=== PATIENT | female | born 1985 | race American Indian/Alaskan Native ===

== ENCOUNTER 2018-11-10 12:24 | Emergency (ER) | payer MEDICAID ==
[2018-11-10] MEDS ORDERED: Bacitracin Oint 1 GM U/D Packet TOP ONE (12:50)
--- NOTE | 2018-11-10 12:56 | EDM.PDOC ---
ED HPI GENERAL MEDICAL PROBLEM - General Chief Complaint: Lower Extremity Injury/Pain Stated Complaint: toenail Time Seen by Provider: 11/10/18 12:45 Source of Information: Reports: Patient History Limitations: Reports: No Limitations - History of Present Illness INITIAL COMMENTS - FREE TEXT/NARRATIVE: This 32 yo female patient reports to the ED with pain and swelling in her right great toe. The patient reports she stubbed it about 1 week ago and has had increased pain in the area since that time. The patient has also noticed increased redness to the toe. The patient was seen in the [facility] yesterday, but did not get treated for her toe. The patient has not done any home cares. Duration: Week(s): (1), Constant, Getting Worse Location: Reports: Lower Extremity, Right Quality: Reports: Other Severity: Moderate Improves with: Reports: None Worsens with: Reports: None Context: Reports: Other Associated Symptoms: Reports: No Other Symptoms - Related Data Allergies Allergy/AdvReac Type Severity Reaction Status Date / Time No Known Allergies Allergy Verified 11/10/18 12:42 Home Meds: Home Meds Escitalopram [Lexapro] 10 mg PO DAILY #30 tab 10/15/18 [Rx] LORazepam 0.5 mg PO Q4H PRN #15 tab 10/15/18 [Rx] Promethazine [Phenergan] 25 mg PO Q6H PRN #20 tab 10/15/18 [Rx] Past Medical History Cardiovascular History: Reports: High Cholesterol Gastrointestinal History: Reports: Other (See Below) Other Gastrointestinal History: has had several episodes of abdominal pain past few months 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: Reports: Polycystic Ovaries Musculoskeletal History: Reports: Back Pain, Chronic Other Musculoskeletal History: HAD A TUMOR REMOVED FROM SPINE 2014; CHRONIC BACK PAIN SICNE Psychiatric History: Reports: Anxiety, Depression, PTSD Dermatologic History: Reports: Other (See Below) Other Dermatologic History: LUMPECTOMY - Past Surgical History Cardiovascular Surgical History: Reports: None GI Surgical History: Reports: None Neurological Surgical History: Reports: Lumbar Spine Musculoskeletal Surgical History: Reports: Other (See Below) Other Musculoskeletal Surgeries/Procedures:: see above Social & Family History - Family History Family Medical History: Noncontributory Cardiac: Reports: Hypertension Endocrine/Metabolic: Reports: Diabetes, type II - Caffeine Use Caffeine Use: Reports: None - Living Situation & Occupation Living situation: Reports: Single, with Family Review of Systems - Review of Systems Review Of Systems: ROS reveals no pertinent complaints other than HPI. ED EXAM, GENERAL - Physical Exam Exam: See Below Exam Limited By: No Limitations General Appearance: Alert, WD/WN, Mild Distress, Obese Eye Exam: Bilateral Eye: EOMI, Normal Inspection, PERRL Ears: Normal External Exam, Normal Canal, Hearing Grossly Normal, Normal TMs Nose: Normal Inspection, Normal Mucosa, No Blood Throat/Mouth: Normal Inspection, Normal Lips, Normal Teeth, Normal Gums, Normal Oropharynx, Normal Voice, No Airway Compromise Head: Atraumatic, Normocephalic Neck: Normal Inspection, Supple, Non-Tender, Full Range of Motion Respiratory/Chest: No Respiratory Distress, Lungs Clear, Normal Breath Sounds, No Accessory Muscle Use, Chest Non-Tender Cardiovascular: Normal Peripheral Pulses, Regular Rate, Rhythm, No Edema, No Gallop, No JVD, No Murmur, No Rub GI/Abdominal: Normal Bowel Sounds, Soft, Non-Tender, No Organomegaly, No Distention, No Abnormal Bruit, No Mass (Female) Exam: Deferred Rectal (Female) Exam: Deferred Back Exam: Normal Inspection, Full Range of Motion, NT Extremities: Other (right great toe pain with some erythema to the toe and lifting of the toenail) Neurological: Alert, Oriented, CN II-XII Intact, Normal Cognition, Normal Gait, Normal Reflexes, No Motor/Sensory Deficits Psychiatric: Normal Affect, Normal Mood Lymphatic: No Adenopathy Course - Vital Signs Last Recorded V/S: Last Vital Signs Temp 37.3 C 11/10/18 12:37 Pulse 96 11/10/18 12:37 Resp 22 H 11/10/18 12:37 BP 132/56 L 11/10/18 12:37 Pulse Ox 98 11/10/18 12:37 - Orders/Labs/Meds Meds: Medications Discontinued Medications Generic Name Dose Route Start Last Admin Trade Name Renéq PRN Reason Stop Dose Admin Bacitracin 1 dose 11/10/18 12:50 11/10/18 13:14 Bacitracin Oint 1 Gm TOP 11/10/18 12:51 1 dose ONETIME ONE Administration Departure - Departure Time of Disposition: 12:51 Disposition: Home, Self-Care 01 Condition: Fair Clinical Impression: Ingrown left big toenail, Cellulitis of great toe, right - Discharge Information *PRESCRIPTION DRUG MONITORING PROGRAM REVIEWED*: Not Applicable *COPY OF PRESCRIPTION DRUG MONITORING REPORT IN PATIENT ASHLIE: Not Applicable Instructions: Cellulitis, Adult, [id number] Referrals: Jadyn Pickett NP [Ordering Only Provider] - Forms: ED Department Discharge Care Plan Goals: The patient was advised of the examination results during the visit. The patient 's toe was soaked and bandaged while in the ED. The patient should soak her foot 2-3 times per day in a soapy mixture (Shannon dish soap would be appropriate ) for 20 minutes per time over the next week. The patient was discharged with a script for Keflex (500 mg) #30 to take 1 by mouth 3 times per day for 10 days. If the patient has any additional symptoms or concerns with her toe, the patient should follow-up with her primary care facility.
== END 2018-11-10 13:22 | disposition home or self-care (01) ==
LOC: DL.ED 12:24
DX: L60.0 Ingrowing nail (principal); L03.031 Cellulitis of right toe; E78.00 Pure hypercholesterolemia, unspecified; Z79.899 Other long term (current) drug therapy
CPT/HCPCS: 99282

== ENCOUNTER 2019-03-11 11:12 | Emergency (ER) | payer MEDICAID ==
--- NOTE | 2019-03-11 12:40 | EDM.PDOC ---
Scribed by Esther Jerome 03/11/19 1238 for Aline Ellis NP ED HPI GENERAL MEDICAL PROBLEM - General Chief Complaint: ENT Problem Stated Complaint: EARACHE [id number] Time Seen by Provider: 03/11/19 11:39 Source of Information: Reports: Patient, RN, RN Notes Reviewed History Limitations: Reports: No Limitations - History of Present Illness INITIAL COMMENTS - FREE TEXT/NARRATIVE: Patient presents to ER with complaint of left ear pain. States began last evening. She has had chills, cough and sore throat. No nausea, vomiting, diarrhea or dental pain. Onset Date: 03/10/19 Duration: Getting Worse Location: Reports: Other (left ear) Quality: Reports: Ache Severity: Moderate Improves with: Reports: None Worsens with: Reports: None Associated Symptoms: Reports: No Other Symptoms Left Ear Pain Score (Numeric/FACES): 7 - Related Data Allergies Allergy/AdvReac Type Severity Reaction Status Date / Time No Known Allergies Allergy Verified 03/11/19 11:17 Home Meds: Home Meds Escitalopram [Lexapro] 20 mg PO DAILY 03/11/19 [History] Multivitamin [Multi-Vitamin Daily] 1 each PO DAILY 03/11/19 [History] Past Medical History - Past Health History Medical/Surgical History: Denies Medical/Surgical History Cardiovascular History: Reports: High Cholesterol Gastrointestinal History: Reports: Other (See Below) Other Gastrointestinal History: has had several episodes of abdominal pain past few months Genitourinary History: Reports: UTI, Recurrent 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 Musculoskeletal History: Reports: Back Pain, Chronic Other Musculoskeletal History: HAD A TUMOR REMOVED FROM SPINE 2014; CHRONIC BACK PAIN SICNE Psychiatric History: Reports: Anxiety, Depression, PTSD Dermatologic History: Reports: Other (See Below) Other Dermatologic History: LUMPECTOMY - Past Surgical History Cardiovascular Surgical History: Reports: None GI Surgical History: Reports: None Neurological Surgical History: Reports: Lumbar Spine Musculoskeletal Surgical History: Reports: Other (See Below) Other Musculoskeletal Surgeries/Procedures:: see above Social & Family History - Family History Family Medical History: Noncontributory Cardiac: Reports: Hypertension Endocrine/Metabolic: Reports: Diabetes, type II - Tobacco Use Smoking Status *Q: Never Smoker - Caffeine Use Caffeine Use: Reports: Energy Drinks Caffeine Use Comment: Pt reports drinking an energy about four times weekly. - Recreational Drug Use Recreational Drug Use: No - Living Situation & Occupation Living situation: Reports: Single, with Family ED ROS ENT - Review of Systems Review Of Systems: ROS reveals no pertinent complaints other than HPI. ED EXAM, ENT - Physical Exam Exam: See Below Exam Limited By: No Limitations General Appearance: Alert, WD/WN, No Apparent Distress Eye Exam: Bilateral Eye: EOMI, Normal Inspection, PERRL Ears: Other (left ear has fluid without erythema) Mouth/Throat: Normal Inspection, Normal Gums, Normal Lips, Normal Oropharynx, Normal Teeth Head: Atraumatic, Normocephalic Neck: Other (anterior cervical adenopathy +2. ) Respiratory/Chest: No Respiratory Distress, Lungs Clear, Normal Breath Sounds, No Accessory Muscle Use, Chest Non-Tender Cardiovascular: Normal Peripheral Pulses, Regular Rate, Rhythm, No Edema, No Gallop, No JVD, No Murmur, No Rub GI/Abdominal: Normal Bowel Sounds, Soft, Non-Tender, No Organomegaly, No Distention, No Abnormal Bruit, No Mass (Female) Exam: Deferred Rectal (Female) Exam: Deferred Back: Normal Inspection, Full Range of Motion Extremities: Normal Inspection, Normal Range of Motion, Non-Tender, No Pedal Edema, Normal Capillary Refill Neurological: Alert, Oriented, CN II-XII Intact, Normal Cognition, Normal Gait, Normal Reflexes, No Motor/Sensory Deficits Psychiatric: Normal Affect, Normal Mood Skin: Warm, Dry, Intact, Normal Color, No Rash Lymphatic: Adenopathy (anterior cervical +2.) Course - Orders/Labs/Meds Orders: Active Orders 24 hr Category Date Time Status CULTURE STREP A CONFIRMATION [] Stat Lab 03/11/19 12:02 Results STREP SCRN A RAPID W CULT CONF [] Stat Lab 03/11/19 12:02 Results Labs: Rapid strep: Negative. Departure - Departure Time of Disposition: 12:36 Disposition: Home, Self-Care 01 Condition: Fair Clinical Impression: Upper respiratory infection Qualifiers: URI type: unspecified viral URI Qualified Code(s): J06.9 - Acute upper respiratory infection, unspecified - Discharge Information *PRESCRIPTION DRUG MONITORING PROGRAM REVIEWED*: No *COPY OF PRESCRIPTION DRUG MONITORING REPORT IN PATIENT ASHLIE: No Instructions: Upper Respiratory Infection, Adult, [id number] Referrals: Maxx Espinoza [Primary Care Provider] - Forms: ED Department Discharge Additional Instructions: May use over the counter decongestant Drink plenty of water May use Tylenol and/or Ibuprofen as directed for pain May use heat to the ear as tolerated - My Orders Last 24 Hours: My Active Orders 03/11/19 12:02 CULTURE STREP A CONFIRMATION [RM] Stat STREP SCRN A RAPID W CULT CONF [RM] Stat - Assessment/Plan Last 24 Hours: My Active Orders 03/11/19 12:02 CULTURE STREP A CONFIRMATION [RM] Stat STREP SCRN A RAPID W CULT CONF [RM] Stat I have read and agree with the documentation that has been completed regarding this visit. By signing this record, I attest that the documentation was completed in my physical presence and is an accurate record of the encounter.
== END 2019-03-11 12:49 | disposition home or self-care (01) ==
LOC: DL.ED 11:12
DX: J06.9 Acute upper respiratory infection, unspecified (principal); F32.9 Major depressive disorder, single episode, unspecified; F41.9 Anxiety disorder, unspecified; Z79.899 Other long term (current) drug therapy
CPT/HCPCS: 87081; 87430; 99282